=== PATIENT | female | born 1965 | race Two or more races ===

== ENCOUNTER 2018-11-04 18:18 | Inpatient (IN) | payer OTHER ==
[~2018-11-04] VITALS: Ht 154.9 cm; Wt 58.1 kg
--- NOTE | 2018-11-04 22:00 | NUR ---
MS ALTERNATIVE ENERGY TECHNICIAN NOTE: PT DIRECT ADMIT FROM [facility] VIA [facility] WITH ADMITTING DIAGNOSIS OF BACK PAIN. PT IS ALERT AND ORIENTED X4, ABLE TO MAKE NEEDS KNOWN. NO APPARENT DISTRESS NOTED. STILL COMPLAINING OF BACK PAIN THAT RADIATES TO LOWER EXT, PAIN SCALE 5/10. ON ROOM AIR, BREATHING EVEN AND UNLABORED WITH NORMAL RESPIRATIONS. SATURATING WELL. VITAL SIGNS WNL. PT HAS AN IV ON RIGHT ANTECUBITAL #20 INTACT AND PATENT, FLUSHING WELL. NO SIGNS/SYMPTOMS OF INFILTRATION NOTED. PERTINENT ASSESSMENTS DONE, SKIN IS INTACT. BELONGINGS LIST SIGNED AND ACCOUNTED FOR. KEPT CLEAN, DRY AND COMFORTABLE. CALL LIGHT PLACE WITHIN REACH. ALL NEEDS ATTENDED. WILL CONTINUE TO MONITOR PT.
[2018-11-04] MEDS ORDERED: DEXT30TA10 PO (22:31)
[2018-11-04] MEDS ORDERED: BUPR150T10 PO (22:31)
[2018-11-04] MEDS ORDERED: ALBU18HF2 IH (22:31)
[2018-11-04] MEDS ORDERED: DIME240C2 PO (22:31)
[2018-11-04 22:55] VITALS: BP 120/73
[2018-11-05] MEDS ORDERED: ACETAMINOPHEN 325 MG TABLET PO PRN
[2018-11-05] MEDS ORDERED: ZOLPIDEM TARTRATE 5 MG TABLET PO PRN
[2018-11-05] MEDS ORDERED: ONDANSETRON HCL/PF 4 MG/2 ML VIAL IVP PRN
[2018-11-05] MEDS ORDERED: MAGNESIUM HYDROXIDE 30 ML UDC PO PRN
[2018-11-05] MEDS ORDERED: HYDROCODONE/APAP 5/325MG 1 EACH TABLET PO PRN
[2018-11-05] MEDS: buPROPion SR 150 MG TABLET.ER PO SCH ×3 (00:05→23:40)
[2018-11-05] MEDS: MORPHINE SULFATE INJ 2 MG/ML DISP.SYRIN IV PRN ×2 (00:11→05:14)
[2018-11-05 04:00] VITALS: BP 122/70
[2018-11-05] MEDS: HYDROMORPHONE 1 MG/1 ML DISP.SYRIN IV PRN ×3 (06:18→19:45)
--- NOTE | 2018-11-05 06:31 | NUR ---
MS RN NOTE: PT IN BED WITH NO APPARENT DISTRESS NOTED. PT COMPLAINED OF 9/10 BACK PAIN, MORPHINE PRN GIVEN ORDERED HOWEVER PT WAS NOT RELIEVED BY THE PAIN MED. DR. FLANNERY MADE AWARE AND HE ORDERED TO DC MORPHINE AND GIVE DILAUDID 1MG Q3HR PRN. DILAUDID PRN WAS GIVEN ORDERED. VITAL SIGNS WNL, BP 108/64 HR 75BPM. NO SOB NOTED, SATURATING WELL ON ROOM AIR. KEPT CLEAN, DRY AND COMFORTABLE. CALL LIGHT PLACED WITHIN REACH. WILL ENDORSE TO DAY SHIFT RN FOR CONTINUITY OF CARE.
[2018-11-05 07:16] LABS: BASOPHILS % (AUTO) 0.3 % (0.0-2.0); EOSINOPHILS % (AUTO) 0.1 % (0.0-6.0); HEMATOCRIT 39 % (33-45); HEMOGLOBIN 13.2 g/dL (11.5-14.8); LYMPHOCYTES # (AUTO) 1.1 /CMM (0.8-4.8); LYMPHOCYTES % (AUTO) 10.3 % (20.0-44.0); MEAN CORPUSCULAR HGB CONC 34 g/dl (31.0-36.0); MEAN CORPUSCULAR VOLUME 95 fL (82-100); MONOCYTES # (AUTO) 0.7 /CMM (0.1-1.30); MONOCYTES % (AUTO) 6.7 % (2.0-12.0); NEUTROPHILS # (AUTO) 8.6 /CMM (1.8-8.9); NEUTROPHILS % (AUTO) 82.6 % (43.0-81.0); PLATELET COUNT (AUTO) 241 /CMM (150-450); RED BLOOD CELL COUNT(AUTO) 4.16 MIL/uL (4.0-5.2); WHITE BLOOD COUNT (AUTO) 10.4 K/uL (4.3-11.0)
[2018-11-05 07:33] LABS: THYROID STIMULATING HORMONE 1.163 uIU/mL (0.358-3.74)
[2018-11-05 07:39] LABS: ALBUMIN 3.7 g/dL (3.4-5.0); BILIRUBIN,TOTAL 0.3 mg/dL (0.2-1.0); CALCIUM, SERUM 8.7 mg/dL (8.5-10.1); CREATININE 0.7 mg/dL (0.6-1.3); POTASSIUM 4.3 mmol/L (3.5-5.1); TOTAL PROTEIN, SERUM 6.7 g/dL (6.4-8.2)
--- NOTE | 2018-11-05 07:45 | NUR ---
RN OPENING NOTES PT IN BED ASLEEP WITH NO APPARENT DISTRESS NOTED AT THIS TIME. NO S/S OF SOB AT PRESENT TIME. PER REPORT PT IS A&OX4. CALL LIGHT PLACED WITHIN REACH. WILL CONTINUE TO MONITOR.
[2018-11-05 08:00] VITALS: BP 87/54
[2018-11-05] MEDS: DOCUSATE SODIUM 100 MG CAPSULE PO SCH ×2 (08:28→17:00)
[2018-11-05] MEDS: PANTOPRAZOLE 40 MG TABLET.DR PO SCH (08:28)
[2018-11-05 16:00] VITALS: BP 97/62
--- NOTE | 2018-11-05 19:10 | NUR ---
MS RN NOTE PATIENT IN BED A/O X 4. NO S/S OF ACUTE DISTRESS. PATIENT C/O OF PAIN IN LEFT LOWER BACK AND LEG. RN AWARE PATIENT HAS DILAUDID FOR PAIN. PATIENT DENIES CHEST PAIN/ SOB/ OR . RN MADE AWARE THAT PATIENT WILL BE TRANSFERRED TO [facility] PENDING BED PLACEMENT. PATIENT ALSO AWARE OF POC. RN WILL CONTINUE TO MONITOR FOR ACUTE CHANGES. BED IN LOWEST LOCKED POSITION.
--- NOTE | 2018-11-05 19:10 | NUR ---
RN CLOSING NOTES PT IS A&OX4. PT WILL BE TRANSFERRED TO [facility] FOR HIGHER LEVEL OF CARE. PT IS AWARE. REPORT GIVEN TO WHEEL PRESSER RN FOR CONTINUITY OF CARE
--- NOTE | 2018-11-05 21:30 | NUR ---
MS RN NOTE MS RODRIGUEZ ROUNDED ON PATIENT AND VERBALIZED TO RN THE IMPORTANCE OF PATIENT BEING TRANSFERRED TONIGHT TO [facility] FOR "ALMOST EMERGENT" NEUROSURGICAL CONSULT. MD STATED , "SHE NEEDS THE SURGERY TOMORROW, SHE HAS SEVERE NEVER INJURY." RN VERBALIZED AND FOLLOWED UP WITH [facility] BROADCAST OPERATIONS TECHNICIAN, KURT, EXTENSION [id number]. PER CM AT [facility], PATIENT NEEDS AUTHORIZATION FROM [facility] STILL AND TAKE BACK TRANSFER AGREEMENT SIGNED BY NURSING YARN SPOOLER AND COVERING MD.
[2018-11-05] MEDS: BACLOFEN (10 MG) 10 MG TABLET PO SCH (22:37)
[2018-11-06] VITALS: BP 112/70
--- NOTE | 2018-11-06 00:50 | NUR ---
MS RN NOTE MD FLANNERY AND NURSING ANIMAL CARE PROVIDER KERRIE SIGNED TAKE BACK TRANSFER AGREEMENT. [facility] CALLED FOR AUTHORIZATION, NO ANSWER MESSAGE LEFT. CM AT [facility] NOTIFIED, SHE STATED SHE WILL FOLLOW UP WITH [facility] MECHANICAL DESIGN ENGINEER FACILITIES FOR THE AUTHORIZATION WELL.
[2018-11-06] MEDS: HYDROMORPHONE 1 MG/1 ML DISP.SYRIN IV PRN ×4 (00:53→12:08)
--- NOTE | 2018-11-06 03:04 | NUR ---
MS RN NOTE CARISSA LEWIS AT [facility] CALLED TO FOLLOW UP. DEBBIE UNABLE TO OBTAIN AUTHORIZATION FROM [facility], WILL HAVE TO ENDORSE TO MORNING THE CONTINUATION OF PATIENT'S D/C. MD FLANNERY NOTIFIED.
--- NOTE | 2018-11-06 07:57 | NUR ---
MS RN OPENING NOTES PT IN BED ASLEEP WITH NO SOB OR ACUTE DISTRESS NOTED AT THIS TIME. PER REPORT PT IS A&OX4. RAC # 20 IV SL INTACT AND PATENT. ON ROOM AIR SATURATING AT 98%. SAFETY MEASURES IN PLACE. PATIENT PROBABLE FOR DISCHARGE TO [facility] TODAY. CALL LIGHT PLACED WITHIN REACH. WILL CONTINUE TO MONITOR.
[2018-11-06 08:00] VITALS: BP 98/58
[2018-11-06] MEDS: DOCUSATE SODIUM 100 MG CAPSULE PO SCH (08:11)
[2018-11-06] MEDS: BACLOFEN (10 MG) 10 MG TABLET PO SCH (08:11)
[2018-11-06] MEDS: PANTOPRAZOLE 40 MG TABLET.DR PO SCH (08:11)
[2018-11-06] MEDS: buPROPion SR 150 MG TABLET.ER PO SCH (12:14)
--- NOTE | 2018-11-06 16:00 | NUR ---
MS MEMBER SERVICES COORDINATOR NOTE PATIENT DISCHARGED PER MD VIA [facility] AT 1315. PATIENT A/O X 4, NO SOB OR ACUTE DISTRESS NOTED. PATIENT GOING TO [facility]. REPORT GIVEN TO CLEO CRAIG AT [facility]. BELONGINGS LIST COMPLETED, IV LEFT IN AT HOSPITAL REQUEST. NO OTHER LINES OR METERS ON PATIENT. BELONGINGS LIST COMPLETED, DISCHARGE PAPERWORK SENT WITH PATIENT. PATIENT SPOKE WITH FAMILY REGARDING TRANSFER. DISCHARGE COMPLETED W/O INCIDENT.
== END 2018-11-06 13:15 | disposition short-term general hospital (02) | DRG 347 ==
LOC: MEDSG1 21:51
PROVIDERS: ADMIT Nurse Practitioner Acute Care; ATTEND Nurse Practitioner Acute Care
DX: M48.061 Spinal stenosis, lumbar region without neurogenic claudication (principal); G35 Multiple sclerosis; F32.9 Major depressive disorder, single episode, unspecified; M54.30 Sciatica, unspecified side; M21.371 Foot drop, right foot; Z79.52 Long term (current) use of systemic steroids; G89.29 Other chronic pain; R26.9 Unspecified abnormalities of gait and mobility; J45.909 Unspecified asthma, uncomplicated; Z79.51 Long term (current) use of inhaled steroids; Z79.899 Other long term (current) drug therapy; M54.16 Radiculopathy, lumbar region; E88.2 Lipomatosis, not elsewhere classified; F98.8 Other specified behavioral and emotional disorders with onset usually occurring in childhood and adolescence; G47.419 Narcolepsy without cataplexy
CPT/HCPCS: 36415; 80053-TC; 80061-TC; 83735-TC; 84100-TC; 84443-TC; 85025-TC; 87081-TC; G0378; J1170; J2270; J2405